=== PATIENT | female | born 1990 | race Caucasian/White ===

== ENCOUNTER 2018-01-30 14:54 | Emergency (ER) | payer OTHER ==
[~2018-01-30] VITALS: Ht 160 cm; Wt 99.8 kg
[2018-01-30 16:34] VITALS: BP 147/102
[2018-01-30] MEDS ORDERED: KETOROLAC TROMETH 60MG/2ML VIAL IM ONE (16:45)
== END 2018-01-30 17:42 | disposition home or self-care (01) ==
LOC: ER 14:58
DX: S46.912A Strain of unspecified muscle, fascia and tendon at shoulder and upper arm level, left arm, initial encounter (principal); S29.019A Strain of muscle and tendon of unspecified wall of thorax, initial encounter; S76.012A Strain of muscle, fascia and tendon of left hip, initial encounter; S80.02XA Contusion of left knee, initial encounter; W11.XXXA Fall on and from ladder, initial encounter; Y93.89 Activity, other specified; Y99.0 Civilian activity done for income or pay; Y92.89 Other specified places as the place of occurrence of the external cause
CPT/HCPCS: 72070; 73030; 73502; 73560; 81025; 96372; 99284; J1885

== ENCOUNTER 2021-01-29 12:57 | Emergency (ER) | payer OTHER ==
[~2021-01-29] VITALS: Ht 160 cm; Wt 93.0 kg
[2021-01-29 16:37] VITALS: BP 134/80
== END 2021-01-29 20:20 | disposition home or self-care (01) ==
LOC: ER 12:57
DX: S90.852A Superficial foreign body, left foot, initial encounter (principal); F17.210 Nicotine dependence, cigarettes, uncomplicated; Z97.10 Presence of artificial limb (complete) (partial), unspecified; Z88.0 Allergy status to penicillin; W18.49XA Other slipping, tripping and stumbling without falling, initial encounter; Y93.89 Activity, other specified; Y92.89 Other specified places as the place of occurrence of the external cause; Y99.8 Other external cause status
CPT/HCPCS: 73610; 73630; 73700

== ENCOUNTER 2024-10-02 11:26 | Inpatient (IN) | payer MEDICAID ==
[2024-10-02] VITALS (9 sets, daily range): BP systolic 125–153; BP diastolic 69–72; PULSE 65–122; RESP 18–24; TEMP 98.3–98.7; O2SAT 91–97
[~2024-10-02] VITALS: Ht 161.3 cm; Wt 91.2 kg
--- NOTE | 2024-10-02 12:05 | ED.PDOC ---
SOB-HPI HPI Comments 33y F who presents to the ED for chief complaint of shortness of breath. Pt states she has been having shortness of breath for the past 4 days and states she started to have non-productive cough this AM. Pt states she was seen at 1 days prior for her complaints and states he had chest x-ray done which shower bilateral pneumonia and given antibiotics and steroid treatment and discharged. Pt states she has continued to have increased shortness of breath with cough and congestion and came back to the ED despite taking her medications. Pt in the ED, has noted 02 sat of 96% on room air and noted to not be in any current respiratory distress. Pt otherwise denies chest pain, fever, headache, dizziness, nausea, vomiting, or chills. Pt otherwise denies any other symptoms at this time. Chief Complaint: Shortness of Breath Time Seen by MD: 11:59 Primary Care Provider: CARINA Bell notes: Nurses Notes, Medications Information Source: Patient Mode of Arrival: Ambulatory Brought in by: self Severity: Moderate Timing: Hours, Days Duration: Since onset Context: At Rest PE Risk Factors: None History of: None (pna) Prehospital treatment: Treatment (antibiotics, steroids) Modifying Factors: Nothing Associated Signs and Symptoms: Cough, Nasal Congestion If cough with SOB: Non-Productive Past Medical History PAST MEDICAL HISTORY: Denies Past Medical History (Other): blood clots in lung and lower extremity Surgical History: Hysterectomy, Thyroidectomy SLATE TRIMMER History: Denies all SLATE TRIMMER Hx Family History Family History: Family hx of HTN Social History Smoker: Cigarettes, Greater Than 1 Pack/Day Alcohol: Occasionally Drugs: Denies Drug Use Lives In: Home Constitutional: reports: chills, diaphoresis; denies: fatigue, fever, malaise, sweats, weakness, others EENTM: denies: blurred vision, double vision, ear bleeding, ear discharge, ear drainage, ear pain, ear ringing, eye pain, eye redness, hearing loss, mouth pain, mouth swelling, nasal discharge, nose bleeding, nose congestion, nose pain, photophobia, tearing, throat pain, throat swelling, voice changes, others Respiratory: reports: cough, shortness of breath; denies: hemoptysis, orthop jad, SOB at rest, SOB with excertion, stridor, wheezing, others Cardiovascular: denies: chest pain, dizzy spells, diaphoresis, Dyspnea on exertion, edema, irregular heart beat, left arm pain, lightheadedness, palpitations, PND, syncope, others Gastrointestinal: denies: abdomen distended, abdominal pain, blood streaked bowels, constipated, diarrhea, dysphagia, difficulty swallowing, hematemesis, melena, nausea, poor appetite, poor fluid intake, rectal bleeding, rectal pain, vomiting, others Genitourinary: denies: abnormal vagina bleeding, burning, dyspareunia, dysuria, flank pain, frequency, hematuria, incontinence, pain, , vagina discharge, urgency, others Neurological: denies: dizziness, fainting, headache, left sided numbness, left sided weakness, numbness, paresthesia, pre-existing deficit, right sided numbness, right sided weakness, seizure, speech problems, tingling, tremors, weakness, others Musculoskeletal: denies: back pain, gout, joint pain, joint swelling, muscle pain, muscle stiffness, neck pain, others Integumetry: denies: bruises, change in color, change in hair/nails, dryness, laceration, lesions, lumps, rash, wounds, others Allergic/Immunocompromised: denies: Difficulty Healing, Frequent Infections, Hives, Itching, others Hematologic/Lymphatic: denies: anemia, blood clots, easy bleeding, easy bruising, swollen glands, others Endocrine: denies: excessive hunger, excessive sweating, excessive thirst, excessive urination, flushing, intolerance to cold, intolerance to heat, unexplained weight gain, unexplained weight loss, others Psychiatric: denies: anxiety, bipolar disorder, depression, hopeless, panic disorder, schizophrenia, sleepless, suicidal, others All Other Systems: Reviewed and Negative Physical Exam General Appearance: Moderate Distress HEENT: Normal ENT Inspection, Pharynx Normal, TMs Normal Neck: Full Range of Motion, Non-Tender, Normal, Normal Inspection Respiratory: Chest Non-Tender, Decreased Breath Sounds, No Accessory Muscle Use, Respiratory Distress Cardiovascular: No Edema, No JVD, No Murmur, No Gallop, Systolic Murmur Breast Exam: Deferred Gastrointestinal: No Organomegaly, Non Tender, No Pulsatile Mass, Normal Bowel Sounds, Soft Genitalia: Deferred Pelvic: Deferred Rectal: Deferred Extremities: No calf tenderness, Normal capillary refill, Normal inspection, Normal range of motion, Non-tender, No pedal edema Musculoskeletal : Apperance: Normal Neurologic: Alert, production control coordinator II-XII nml as Tested, No Motor Deficits, Normal Affect, Normal Mood, No Sensory Deficits Cerebellar Function: Normal Reflexes: Normal Skin: Dry, Normal Color, Warm Lymphatic: No Adenopathy EKG EKG : Pulse Rate (adult): 146 [place]: Normal Cardiac Rhythm: ST Block: None Hypertrophy: None ST: Normal Was a procedure done? Was a procedure done?: No Differential Dx Differential Diagnosis: Bronchitis, Dysrhythmia, Pneumonia, Respiratory Distress, URI Comments Influenza A and B, COVID, viral syndrome, X-Ray, Labs, Meds, VS Vital Signs Date Time Temp Pulse Resp B/P (MAP) Pulse Ox O2 Delivery O2 Flow Rate FiO2 10/02/24 12:15 131 22 153/69 (97) 93 10/02/24 12:15 132 20 94 Room Air 10/02/24 12:05 146 10/02/24 11:52 98.3 148 16 151/89 (109) 96 10/02/24 11:43 146 Lab Test 10/02/24 12:08 10/02/24 12:02 Range/Units Influenza Type A Antigen Negative Negative Influenza Type B Antigen Negative Negative SARS-CoV-2 Antigen (Rapid) Negative NEGATIVE White Blood Count 30.0 H 4.4-10.8 10^3/uL Red Blood Count 5.84 H 4.0-5.20 10^6/uL Hemoglobin 17.0 H 12.2-16.2 g/dL Hematocrit 50.4 H 36.0-46.0 % Mean Corpuscular Volume 86.3 80.0-100.0 fL Mean Corpuscular Hemoglobin 29.1 28.0-32.0 pg Mean Corpuscular Hemoglobin Concent 33.7 32.0-36.0 g/dL Red Cell Distribution Width 13.3 11.8-14.3 % Platelet Count 438 140-450 10^3/uL Mean Platelet Volume 7.7 6.9-10.8 fL Neutrophils (%) (Auto) 37.0-80.0 % Lymphocytes (%) (Auto) 10.0-50.0 % Monocytes (%) (Auto) 0.0-12.0 % Basophils (%) (Auto) 0.0-2.0 % Neutrophils # (Auto) 1.6-8.6 10 ^3/uL Lymphocytes # (Auto) 0.4-5.4 10 ^3/uL Monocytes # (Auto) 0-1.3 10 ^3/uL Differential Total Cells Counted 100.0 100 Neutrophils % (Manual) 91 H 37.0-80.0 Band Neutrophils % (Manual) 1 Lymphocytes % (Manual) 5 L 10.0-50.0 Monocytes % (Manual) 3 0-12 Eosinophils % (Manual) 0 0-7 Basophils % (Manual) 0 0.0-2.0 Metamyelocytes % (manual) 0 Myelocytes % (Manual) 0 Promyelocytes % (Manual) 0 Blast Cells % (Manual) 0 Reactive Lymphocytes 0 Platelet Estimate Adequate D-Dimer, Quantitative 0.21 0.0-0.49 mg/L FEU Sodium Level 137 136-145 mmol/L Potassium Level 3.8 3.5-5.1 mmol/L Chloride Level 105 98-107 mmol/L Carbon Dioxide Level 23 20-31 mmol/L Anion Gap 9 5-15 Blood Urea Nitrogen 11 9-23 mg/dL Creatinine 0.90 0.550-1.02 mg/dL Glomerular Filtration Rate Calc 86 >90 mL/min BUN/Creatinine Ratio 12.2 10.0-20.0 Serum Glucose 204 H 74-106 mg/dL Calcium Level 10.9 H 8.7-10.4 mg/dL Current Medications Medications (Trade) Dose Ordered Sig/Angelo Route Start Time Stop Time Status Last Admin Methylprednisolone Sodium Succinate (Solu Medrol) 125 mg ONCE ONCE IV 10/02/24 11:45 10/02/24 11:46 DC 10/02/24 12:26 PROCEDURE(s): CXR2 - CHEST TWO VIEWS ROUTINE IMPRESSION: 1. Left basilar atelectasis, otherwise, no radiographic evidence of acute cardiopulmonary disease. The patient was given Solu-Medrol 125 mg IV push The patient's [place] [id number] The COVID test as well as influenza a and influenza B are negative The patient is being admitted with a diagnosis of most likely a left lower lobe pneumonia The patient was placed on Zithromax IV piggyback We are contacting Valentines at this time. The patient's oxygen saturation dropped below 93% so the patient was placed on 2 L nasal cannula of oxygen Images Reviewed?: Images reviewed and evaluated by me Time of 1ST Reevaluation: 12:30 Reevaluation 1ST: Unchanged Patient Education/Counseling: Diagnosis, Treatment, Prognosis Family Education/Counseling: No Family Present Additional Information - I reviewed the following notes from patient's past medical encounters: - The following tests were ordered, and results were reviewed by me: CBC, chest x-ray, BMP, D-dimer, COVID test, Influenza A and B, EKG - Additional information was gathered from interviewing the following independent Historian: none - I reviewed and agreed with the following test results read by other provider: radiologist - I discussed treatments and results with medical personnel and: patient Departure 1 Departure Time of Disposition: 13:14 Impression: Primary Impression: Left lower lobe pneumonia Qualified Codes: J18.9 - Pneumonia, unspecified organism Additional Impression: Acute respiratory failure Qualified Codes: J96.01 - Acute respiratory failure with hypoxia Disposition: ADMITTED INPATIENT Admit to: Tele Condition: Fair Critical Care Note Critical Care Time?: No Stability Stability form required: Yes Unstable for transfer: Telemetry monitoring (Telemetry monitoring required), ED Physician Assesment (Clinical assesment) Heart Score Heart Score: Heart Score Response (Comments) Value History Moderate Suspicious 1 EKG Normal 0 Age <45 0 Risk Factors No known risk factors 0 Troponin Normal limit 0 Total 1 I personally scribed for TOMMY CARDONA MD ([email or web address]) on 10/02/24 at 12:05. Electronically submitted by Lucinda Crowell ([email or web address]). I personally scribed for TOMMY CARDONA MD ([email or web address]) on 10/02/24 at 12:26. Electronically submitted by Lucinda FORD). TOMMY CARDONA MD Oct 02, 2024 12:05
--- NOTE | 2024-10-02 12:13 | DVH ---
XY CHEST TWO VIEWS ROUTINE CLINICAL HISTORY: sob COMPARISON: Chest radiograph report 10/01/2024 TECHNIQUE: Frontal and lateral view of the chest was obtained FINDINGS: Lines and Tubes: None Lungs: No focal consolidation. Left basilar curvilinear opacity Pleura: No effusion. No pneumothorax. Cardiomediastinal contours: Unremarkable Bones: No acute osseous abnormality. IMPRESSION: 1. Left basilar atelectasis, otherwise, no radiographic evidence of acute cardiopulmonary disease. HS:Y
[2024-10-02] MEDS: methylPREDNISolone SOD SUCC 125 MG/2 ML VL IV ONE (12:26)
[2024-10-02 12:34] LABS: Hematocrit 50.4 % (36.0-46.0); Mean Corpuscular Hemoglobin 29.1 pg (28.0-32.0); Mean Corpuscular Hgb Conc. 33.7 g/dL (32.0-36.0); Mean Corpuscular Volume 86.3 fL (80.0-100.0); Platelet Count (auto) 438 10^3/uL (140-450); Red Blood Cells 5.84 10^6/uL (4.0-5.20); Red Cell Distribution Width 13.3 % (11.8-14.3)
[2024-10-02 12:39] LABS: Basophils % (manual) 0 (0.0-2.0); Blast Cells 0; Eosinophils % (manual) 0 (0-7); Metamyelocytes % 0; Myelocytes % 0; Promyelocytes % 0; Reactive Lymphocytes 0
[2024-10-02 12:47] LABS: Chloride 105 mmol/L (98-107); Potassium 3.8 mmol/L (3.5-5.1); Sodium 137 mmol/L (136-145)
[2024-10-02 12:48] LABS: Anion Gap 9 (5-15); Carbon Dioxide 23 mmol/L (20-31)
[2024-10-02 12:53] LABS: BUN/Creatinine Ratio 12.2 (10.0-20.0); Blood Urea Nitrogen 11 mg/dL (9-23)
[2024-10-02 12:55] LABS: Calcium 10.9 mg/dL (8.7-10.4); Glucose 204 mg/dL (74-106)
[2024-10-02 12:56] LABS: Rapid Influenza A Negative (Negative); Rapid Influenza B Negative (Negative)
[2024-10-02 12:57] LABS: COVID19 ANTIGEN SOFIA FIA NEGATIVE (NEGATIVE)
[2024-10-02 13:03] LABS: Band Neutrophils % (manual) 1; Lymphocytes % (manual) 5 (10.0-50.0); Monocytes % (manual) 3 (0-12); Platelet Estimate Adequate
[2024-10-02] MEDS: AZITHROMYCIN 500MG/ 250ML 250 ML IV ONE (13:51)
[2024-10-02] MEDS ORDERED: VANCOMYCIN PER PHARMACY 0 MG IV SCH (14:15)
[2024-10-02] MEDS: SODIUM CHLORIDE 0.9% 1,000 ML IV SCH (14:15)
[2024-10-02] MEDS ORDERED: DOCUSATE SOD 100 MG CAP PO PRN (14:15)
[2024-10-02] MEDS ORDERED: MAALOX PLUS or MAALOX 30 ML PO PRN (14:15)
[2024-10-02] MEDS ORDERED: TEMAZEPAM 15 MG CAP PO PRN (14:15)
[2024-10-02] MEDS ORDERED: ONDANSETRON HCL 4 MG/2 ML VIAL IV PRN (14:15)
--- NOTE | 2024-10-02 15:17 | DVHHP2 ---
History of Present Illness Reason for Visit: Shortness of breath History of Present Illness 33-year-old patient with no past medical history closely ED for evaluation of stated productive cough and shortness of breath patient on initial evaluation was shown to have severe signs of possible bilateral pneumonia patient had an x-ray completed in the ED which confirmed suggested atelectasis patient also had signs of a severely elevated white count with cough cold and congestion at this point in time patient was recommended for admission into the hospital for continued treatment and management as per ED provider recommendations Review of Systems Constitutional: Yes: Weakness; No: Fever, Chills, Sweats, Malaise, Other Eyes: No: Pain, Vision change, Conjunctivae inflammation, Eyelid inflammation, Other, Redness ENT: No: Ear pain, Ear discharge, Nose pain, Nose discharge, Nose congestion, Mouth pain, Mouth swelling, Throat pain, Throat swelling, Other Respiratory: Cough, Shortness of breath, SOB with excertion; No: Dry, Wheezing, Hemoptysis, Pleuritic Pain, Sputum, Wheezing, Other Cardiovascular: No: Chest Pain, Palpitations, Orthopnea, Paroxysmal Noc. Dysp jad, Edema, Lt Headedness, Other Gastrointestinal: No: Nausea, Vomiting, Abdominal Pain, Diarrhea, Constipation, Melena, Hematochezia, Other Genitourinary: No Dysuria, No Frequency, No Incontinence, No Hematuria, No Retention, No Other Musculoskeletal: No: other, neck pain, shoulder pain, arm pain, back pain, hand pain, leg pain, foot pain Skin: No: Rash, Lesions, Jaundice, Bruising, Other Neurological: No: Weakness, Numbness, Incoordination, Change in speech, Confusion, Seizures, Other Allergies: Coded Allergies: Amoxicillin (Verified Allergy, Unknown, 01/29/21) Exam Vital Signs Vital Signs Date Time Temp Pulse Resp B/P (MAP) Pulse Ox O2 Delivery O2 Flow Rate FiO2 10/02/24 12:15 131 22 153/69 (97) 93 10/02/24 12:15 Room Air 10/02/24 11:52 98.3 General Appearance: Alert, Oriented X3, Cooperative, moderate distress HEENT: Atraumatic, PERRLA Respiratory: Clear to auscultation (Left-sided rhonchi) Cardiovascular: Regular rate, Normal S1, Normal S2 Abdominal: Normal bowel sounds, Soft Extremities: No clubbing, No cyanosis Skin: No rashes, No breakdown Neuro: Normal gait, Normal speech Psych/Mental Status: Mood NL Labs/Xrays Labs Test 10/02/24 12:08 10/02/24 12:02 Range/Units Influenza Type A Antigen Negative Negative Influenza Type B Antigen Negative Negative SARS-CoV-2 Antigen (Rapid) Negative NEGATIVE White Blood Count 30.0 H 4.4-10.8 10^3/uL Red Blood Count 5.84 H 4.0-5.20 10^6/uL Hemoglobin 17.0 H 12.2-16.2 g/dL Hematocrit 50.4 H 36.0-46.0 % Mean Corpuscular Volume 86.3 80.0-100.0 fL Mean Corpuscular Hemoglobin 29.1 28.0-32.0 pg Mean Corpuscular Hemoglobin Concent 33.7 32.0-36.0 g/dL Red Cell Distribution Width 13.3 11.8-14.3 % Platelet Count 438 140-450 10^3/uL Mean Platelet Volume 7.7 6.9-10.8 fL Neutrophils (%) (Auto) 37.0-80.0 % Lymphocytes (%) (Auto) 10.0-50.0 % Monocytes (%) (Auto) 0.0-12.0 % Basophils (%) (Auto) 0.0-2.0 % Neutrophils # (Auto) 1.6-8.6 10 ^3/uL Lymphocytes # (Auto) 0.4-5.4 10 ^3/uL Monocytes # (Auto) 0-1.3 10 ^3/uL Differential Total Cells Counted 100.0 100 Neutrophils % (Manual) 91 H 37.0-80.0 Band Neutrophils % (Manual) 1 Lymphocytes % (Manual) 5 L 10.0-50.0 Monocytes % (Manual) 3 0-12 Eosinophils % (Manual) 0 0-7 Basophils % (Manual) 0 0.0-2.0 Metamyelocytes % (manual) 0 Myelocytes % (Manual) 0 Promyelocytes % (Manual) 0 Blast Cells % (Manual) 0 Reactive Lymphocytes 0 Platelet Estimate Adequate D-Dimer, Quantitative 0.21 0.0-0.49 mg/L FEU Sodium Level 137 136-145 mmol/L Potassium Level 3.8 3.5-5.1 mmol/L Chloride Level 105 98-107 mmol/L Carbon Dioxide Level 23 20-31 mmol/L Anion Gap 9 5-15 Blood Urea Nitrogen 11 9-23 mg/dL Creatinine 0.90 0.550-1.02 mg/dL Glomerular Filtration Rate Calc 86 >90 mL/min BUN/Creatinine Ratio 12.2 10.0-20.0 Serum Glucose 204 H 74-106 mg/dL Calcium Level 10.9 H 8.7-10.4 mg/dL Assessment/Plan Assessment/Plan Admit to telemetry Suspected left lower lobar pneumonia Acute respiratory distress Chest x-ray shows left lower basilar atelectasis IV antibiotics Severe leukocytosis IV hydration Recommendation for BiPAP P.r.n. breathing treatments Critical care time 38 minutes Plan discussed with: Patient My Orders Orders - CELY VELASCO MD Procedure Category Date Status Time Vancomycin Per PHA 10/02/24 Logged Pharmacy 14:15 Piperacillin-Tazob PHA 10/02/24 Logged 3.375gm (Zosyn 3.375g 22:00 BIPAP RT 10/02/24 Logged 14:11 Albuterol Medneb PHA 10/02/24 In Process (Ventolin Medneb) 14:15 Ipratropium Medneb PHA 10/02/24 In Process (Atrovent Medneb) 14:15 Med Neb Initial RT 10/02/24 Logged Treatment 14:11 Methylprednisolone PHA 10/02/24 In Process Sod Succ (Solu Medrol 22:00 Abg W/ Co-Ox RT 10/02/24 Logged 14:11 Admit ADMIT 10/02/24 Transmitted 14:11 Code Status CODE 10/02/24 Transmitted 14:11 Vital Signs CYNTHIA 10/02/24 In Process 14:11 Review Orders With CYNTHIA 10/02/24 In Process Adm. 14:11 Regular Diet DIET 10/02/24 Transmitted Dinner Sodium Chloride 0.9% PHA 10/02/24 In Process 14:15 Lorazepam Tablet PHA 10/02/24 In Process (Ativan Tablet) 14:15 Alum & Mag PHA 10/02/24 In Process Hydrox-Simethicone 14:15 Docusate Sodium PHA 10/02/24 In Process Capsule (Colace 14:15 Acetaminophen Tablet PHA 10/02/24 In Process (Tylenol Tablet) 14:15 Temazepam (Restoril) PHA 10/02/24 In Process 14:15 Notify Md Of Changes CYNTHIA 10/02/24 In Process From Base 14:11 Advance Directive CYNTHIA 10/02/24 In Process 14:11 Urinalysis LAB 10/02/24 Logged 14:11 Patient Condition ORDERS 10/02/24 Transmitted 14:11 Allergies CYNTHIA 10/02/24 In Process 14:11 Hydrocodone-Acet PHA 10/02/24 In Process 5/325mg Tab ([place] 14:15 Ondansetron Hcl PHA 10/02/24 In Process (Zofran) 14:15 Drug Screen LAB 10/02/24 Logged 14:11 Morphine Sulfate PHA 10/02/24 In Process Injection 14:15 Notify Md Of Changes [facility] 10/02/24 In Process From Base 14:11 Front Desk Monitor For [facility] 10/02/24 In Process 24 Hours 14:11 Oxygen By Nasal RT 10/02/24 Transmitted Cannula 14:11 Problem List: (1) Left lower lobe pneumonia (2) Acute respiratory failure Date of Service: Oct 02, 2024 Billing Provider: CELY VELASCO MD Common Visit Codes: [id number] CARE 30-74 MIN CELY VELASCO MD Oct 02, 2024 15:17
[2024-10-02 15:18] LABS: Base Excess -5.9 mmol/L (-2.0-3.0)
[2024-10-02] MEDS: HYDROcodone-ACET 5/325MG TAB PO PRN (16:08)
[2024-10-02] MEDS: LORazepam 0.5 MG TAB PO PRN (18:53)
[2024-10-02] MEDS: ALBUTEROL SULF 2.5 MG/0.5ML(0.5%) NEB SOLN NEB PRN (18:57)
[2024-10-02] MEDS: IPRATROPIUM BROM 0.5 MG/2.5ML INH SOL NEB PRN (18:58)
[2024-10-02] MEDS: VANCOMYCIN 1,000 MG in D5W 5% 250 ML IV SCH (20:25)
[2024-10-02] MEDS: MORPHINE SULFATE INJ 2 MG/ml SYRG IV PRN (20:30)
[2024-10-02] MEDS ORDERED: PIPERACILLIN-TAZOB 3.375GM 100 ML IV SCH (22:00)
[2024-10-02] MEDS: methylPREDNISolone SOD SUCC 40 MG/ML VL IV SCH (23:43)
[2024-10-03] VITALS (17 sets, daily range): BP systolic 110–126; BP diastolic 58–67; PULSE 86–115; RESP 16–24; TEMP 97.9–98.5; O2SAT 91–99
[2024-10-03] MEDS: ACETAMINOPHEN 325 MG TAB PO PRN ×2 (00:21→18:17)
[2024-10-03] MEDS: VANCOMYCIN 1,250 MG in D5W 5% 250 ML IV SCH (05:49)
[2024-10-03 07:48] LABS: Potassium 3.8 mmol/L (3.5-5.1)
[2024-10-03 07:54] LABS: BUN/Creatinine Ratio 11.1 (10.0-20.0)
[2024-10-03 07:55] LABS: Albumin 4.5 g/dL (3.2-4.8)
[2024-10-03 07:57] LABS: Phosphorus 3.7 mg/dL (2.4-5.1)
[2024-10-03 09:43] LABS: Alanine Aminotransferase 39 U/L (7-40); Albumin 4.8 g/dL (3.2-4.8); Alkaline Phosphatase 85 U/L (46-116); Anion Gap 11 (5-15); Aspartate Aminotransferase 20 U/L (13-40); Blood Alcohol < 3.0 mg/dL (<10); Blood Urea Nitrogen 11 mg/dL (9-23); Calcium 10.3 mg/dL (8.7-10.4); Carbon Dioxide 21 mmol/L (20-31); Chloride 107 mmol/L (98-107); Potassium 3.8 mmol/L (3.5-5.1); Sodium 139 mmol/L (136-145); Total Protein 7.7 g/dL (5.7-8.2)
[2024-10-03 09:47] LABS: Glucose 144 mg/dL (74-106)
[2024-10-03] MEDS ORDERED: SODIUM CHLORIDE 0.9% 1,000 ML IV SCH (10:00)
[2024-10-03] MEDS: ALBUTEROL SULF 2.5 MG/0.5ML(0.5%) NEB SOLN NEB SCH (10:00)
[2024-10-03] MEDS: IPRATROPIUM BROM 0.5 MG/2.5ML INH SOL NEB SCH (10:00)
[2024-10-03 10:09] LABS: Bilirubin, Total 0.2 mg/dL (0.2-1.0)
[2024-10-03 10:16] LABS: Basophils # (auto) 0.1 10 ^3/uL (0-0.2); Eosinophils # (auto) 0 10 ^3/uL (0-0.8); Monocytes # (auto) 1.1 10 ^3/uL (0-1.3); Monocytes % (auto) 3.5 % (0.0-12.0)
[2024-10-03 10:20] LABS: Basophils % (auto) 0.2 % (0.0-2.0); Hematocrit 46.1 % (36.0-46.0); Hemoglobin 15.7 g/dL (12.2-16.2); Lymphocytes % (auto) 6.6 % (10.0-50.0); Mean Corpuscular Hemoglobin 29.2 pg (28.0-32.0); Mean Corpuscular Volume 85.8 fL (80.0-100.0); Neutrophils # (auto) 27.2 10 ^3/uL (1.6-8.6); Neutrophils % (auto) 89.7 % (37.0-80.0); Platelet Count (auto) 422 10^3/uL (140-450); Red Blood Cells 5.37 10^6/uL (4.0-5.20)
[2024-10-03 10:35] LABS: White Blood Cell 30.3 10^3/uL (4.4-10.8)
[2024-10-03] MEDS: SODIUM CHLORIDE 0.9% 1,000 ML IV SCH (10:45)
--- NOTE | 2024-10-03 10:53 | DVH ---
Procedure: CT CHEST WITHOUT CONTRAST Reason for study/Clinical History: Foreign body aspiration. Comparison Study: None. Exam Date: 10/03/2024 10:22 AM TECHNIQUE: Multidetector CT of the chest was performed from the lung apices to the upper abdomen with out the use of intravenous contract. Axial, coronal and sagittal multiplanar reformats were performed . Radiation Dose Information: CT Dose: CTDI volume is 27.84 mGy. Dose-length product is 950.04 mGy*cm The dose indicators for CT are the volume Computed Tomography (CT) Dose Index (CTDIvol) and the Dose Length Product (DLP), and are measured in units of mGy and mGy-cm, respectively. These indicators are not patient dose, but values generated from the CT scanner acquisition factors. The report includes radiation exposure data for exposures received during this examination. Radiation optimization: All CT scans at this facility use at least one of these dose optimization jen hniques: automated exposure control mA and/or kV adjustment per patient size (includes targeted exam s where dose is matched to clinical indication) or iterative reconstruction. FINDINGS Lungs/Pleura: There is moderate size patchy ground-glass opacities in the left upper lobe likely repr esenting airspace disease. There are similar smaller areas of patchy ground-glass opacity in the martin hilar right lung involving the right upper lobe, right middle lobe and right lower lobe. There is mil d scarring versus atelectasis in the lower lungs. There is no evidence of pleural effusion or pneumot horax. The central airways are clear. There is no evidence of a radiopaque foreign body. Heart/Vascular Structures: Normal heart size. No pericardial effusion. Lymph Nodes: No thoracic lymphadenopathy. Musculoskeletal: No acute osseous abnormality. Soft tissues: Unremarkable. Upper abdomen: Visualized solid abdominal viscera grossly appears unremarkable. IMPRESSION: 1. Moderate size patchy ground-glass opacities in the left upper lobe likely representing airspace d isease. Clinical correlation is recommended. 2. Similar smaller areas of patchy ground-glass opacity in the perihilar right lung. HS:Y
[2024-10-03] MEDS ORDERED: levoFLOXacin 500MG 100 ML IV SCH (11:30)
[2024-10-03] MEDS ORDERED: levoFLOXacin 250MG 50 ML IV ONE (13:00)
[2024-10-03] MEDS: levoFLOXacin 250MG 50 ML IV SCH (13:07)
[2024-10-03] MEDS ORDERED: levoFLOXacin 250MG 50 ML IV SCH (14:00)
[2024-10-03] MEDS ORDERED: CEFEPIME 1GM/ 50ML 50 ML IV SCH (14:00)
--- NOTE | 2024-10-03 15:02 | DVHPNRES ---
Progress Note Date Seen: Oct 03, 2024 Resident Creating Document: JUS CALDERÓN RESIDENT Medical Necessity Reason Pt with a Central, PICC or Fol: No Subjective Review of Systems SANTOS SHEPHERD is a 33-year-old female with no significant PMH presented to the ED with the chief complaints of shortness of breaths and cough since 6 days prior to admission. Patient reported last Sunday, she aspirated booba bubble, to dL developed cough, went to urgent care, received steroids antibiotics and breathing treatments, did not resolve, worsening with cough, headache, palpitations and shortness of which prompted her to visit ED. On my assessment patient denies recent travel, sick contact, fever, nausea, vomiting, diarrhea, chest pain, and other acute associated symptoms. PMH: Denies PSH: Hysterectomy and surgery for strabismus Family history: Reviewed, noncontributory Social history: Lives with family. Smokes 1 pack per day since 16 years old but denies alcohol and other drug abuse Allergies: , oxacillin Home medications: None Patient seen and examined at the bedside. Patient is currently on 2 L oxygen NC, still complaining of cough, shortness of breath. Patient receiving breathing treatments along with Solu-Medrol 40 and vancomycin. Consulted pulmonology for further evaluation, ordered CT chest, which showed moderate site patchy ground-glass opacities in left upper lobe and perihilar right lung. Ordered cultures. pulmonology corporate consultant evaluated the patient advised to continue current management. Objective vital signs Vital Sign Date Time Temp Pulse Resp B/P (MAP) Pulse Ox O2 Delivery O2 Flow Rate FiO2 10/03/24 13:00 98.5 110 21 112/64 (80) 93 98.5 10/03/24 10:38 Nasal Cannula 2.0 10/03/24 10:38 28 Total Intake and Output 10/02/24 10/02/24 10/03/24 15:00 23:00 07:00 Intake Total 200 ml Balance 200 ml medications Current Medications Medications Dose Ordered Sig/Angelo Route Start Time Stop Time Status Last Admin Dose Admin Vancomycin HCl 0 ml @ 0 mls/hr UD IV 10/02/24 14:15 Piperacillin Sod/ Tazobactam Sod 100 ml @ 100 mls/hr Q8HR IV 10/02/24 22:00 Hold Methylprednisolone Sodium Succinate 40 mg BID IV 10/02/24 22:00 10/03/24 09:40 40 MG Lorazepam 0.5 mg Q6HP PRN PO 10/02/24 14:15 10/03/24 09:52 0.5 MG Al Hydrox/Mg Hydrox/Simethicone 30 ml Q6HP PRN PO 10/02/24 14:15 Docusate Sodium 100 mg BIDPRN PRN PO 10/02/24 14:15 Temazepam 15 mg QHSP PRN PO 10/02/24 14:15 Acetaminophen/ Hydrocodone Bitart 1 tab Q4HP PRN PO 10/02/24 14:15 10/03/24 14:09 1 TAB Ondansetron HCl 4 mg Q4HP PRN IV 10/02/24 14:15 Morphine Sulfate 2 mg Q4HPRN PRN IV 10/02/24 14:15 10/02/24 20:30 2 MG Vancomycin HCl 1250 mg/Dextrose 250 ml @ 200 mls/hr Q12H IV 10/03/24 05:00 10/03/24 05:49 200 MLS/HR Acetaminophen 650 mg Q6HP PRN PO 10/03/24 09:30 Albuterol 2.5 mg Q4HPRN NEB 10/03/24 09:45 10/03/24 10:38 2.5 MG Ipratropium [place] 0.5 mg Q4HPRN NEB 10/03/24 09:45 10/03/24 10:38 0.5 MG Sodium Chloride 1,000 ml @ 150 mls/hr Q6H40M IV 10/03/24 10:45 10/03/24 10:45 150 MLS/HR Levofloxacin 50 ml @ 50 mls/hr DAILY@1000,1100 IV 10/04/24 10:00 Levofloxacin 50 ml @ 50 mls/hr DAILY@1300,1400 IV 10/03/24 13:00 10/03/24 14:59 10/03/24 14:09 50 MLS/HR Examination Pt is lying on bed General Appearance: Alert, Oriented X3, Cooperative, moderate distress HEENT: Atraumatic, Mucous membranes moist/pink Respiratory: Wheezing and rales in bilateral lung Cardiovascular: tachycardic , Normal S1, Normal S2, No murmurs Abdominal: Active bowel sounds, Soft, no distention, no tenderness Extremities: No edema, Normal pulses, No tenderness/swelling Skin: No Significant rash, except past surgical scars Neuro: Normal speech, sensorimotor deficits none Psych/Mental Status: Mental status NL, Mood NL Nurse was there as yancyne during examination laboratory and microbiology Laboratory Tests 10/03/24 08:58 Test 10/03/24 08:58 Range/Units Serum Glucose 144 H 74-106 mg/dL Labs and/or images reviewed: Labs reviewed by me, Image(s) reviewed by me Problem List/Assessment/Plan Problem List/Assessment/Plan # Sepsis likely due to pneumonia # Acute G+/- bacterial PNA vs Aspiration PNA # acute hypoxic respiratory failure likely due to pneumonia # ruled out influenza and COVID - currently on 2 L oxygen NC - Patient receiving breathing treatments along with Solu-Medrol 40 and vancomycinl and levofloxacin. - Consulted pulmonology for further evaluation, advised to continue current management. - ordered CT chest We, which showed moderate site patchy ground-glass opacities in left upper lobe and perihilar right lung - Ordered cultures - monitor lab - CXR showed left basilar atelectasis, otherwise, no radiographic evidence of acute cardiopulmonary disease # Vit D deficiency - Repleting No DVT PPX since patient is ambulatory Maalox cardiac diet Goals of care discussed with the patient for more than 27 minutes: Full code status Case management discussed with Dr. Arellano, patient and nurse Plan discussed with: Patient My Orders My Orders Orders - JUS CALDERÓN RESIDENT Procedure Category Date Status Time Respiratory Culture JULIA 10/03/24 Logged W/ Gs 08:04 Blood Culture JULIA 10/03/24 In Process 08:04 Albuterol Medneb PHA 10/03/24 In Process (Ventolin Medneb) 09:45 Ipratropium Medneb PHA 10/03/24 In Process (Atrovent Medneb) 09:45 Sodium Chloride 0.9% PHA 10/03/24 In Process 10:45 Cardiac DIET 10/03/24 Transmitted Diet-2gna,Lofat,Lochol Lunch Levofloxacin 250mg PHA 10/04/24 In Process (Levaquin 250mg) 10:00 Levofloxacin 250mg PHA 10/03/24 In Process (Levaquin 250mg) 13:00 Date of Service: Oct 03, 2024 Billing Provider: LAURO ARELLANO MD Common Visit Codes: [id number] INP/OBS CARE(HIGH) JUS CALDERÓN RESIDENT Oct 03, 2024 15:01 LAURO ARELLANO MD Oct 06, 2024 19:42
--- NOTE | 2024-10-03 15:48 | DVHINCON2 ---
Date of service: Oct 03, 2024 Referring Physician Carlos Oquendo MD Reason for Consultation Acute hypoxic respiratory failure, pneumonia History of Present Illness A 33-year-old woman with no significant past medical history who presented to the ED on 10/02/24 with c/o productive cough and shortness of breath x6 days. Of note, patient reported last Sunday, she aspirated a booba bubble and developed cough; went to urgent care, received steroids, antibiotics and breathing treatments but did not resolve. She had worsening cough, headache, palpitations and shortness of breath which prompted her to visit ED. Patient showing signs of possible bilateral pneumonia; chest x-ray was notable for atelectasis. Patient also w/ severely elevated white count with cough, cold and congestion. She denied fever, nausea, vomiting, chest pain, or other associated symptoms. Patient was admitted for further care and pulmonary consultation is requested for evaluation and management due to the above findings. Review of Systems: 14-point review of systems negative unless otherwise noted above. Past Medical History: Strabismus. Past Surgical History: Hysterectomy and surgery for strabismus. Medications: Reviewed. Allergies: Amoxicillin. Family History: Blood clots, diabetes mellitus, pulmonary embolism and hypertension. Social History: Smoker. Smokes 1 pack per day since 16 years old. No alcohol or illicit drug use. Family History: Blood clots G8 MOTHER G8 FATHER Diabetes mellitus G8 MOTHER FH: pulmonary embolism G8 FATHER Hypertension G8 MOTHER Allergies: Coded Allergies: Amoxicillin (Verified Allergy, Unknown, 01/29/21) Home Meds No Active Prescriptions or Reported Meds Current Medications Current Medications Medications (Trade) Dose Ordered Sig/Angelo Route PRN Reason Start Time Stop Time Status Last Admin Piperacillin Sod/ Tazobactam Sod 100 ml @ 100 mls/hr Q8HR IV 10/02/24 22:00 Hold Methylprednisolone Sodium Succinate (Solu Medrol) 40 mg BID IV 10/02/24 22:00 10/03/24 09:40 Vancomycin HCl 1000 mg/Dextrose 250 ml @ 250 mls/hr Q1H IV 10/02/24 16:15 10/02/24 18:14 DC 10/02/24 23:42 Vancomycin HCl 1250 mg/Dextrose 250 ml @ 200 mls/hr Q12H IV 10/03/24 05:00 10/03/24 05:49 Acetaminophen (Tylenol Tablet) 650 mg Q6HP PRN PO MILD PAIN (1-3 PAIN SCALE) 10/03/24 09:30 Albuterol (Ventolin Medneb) 2.5 mg Q4HPRN NEB 10/03/24 09:45 10/03/24 14:56 Ipratropium [place] (Atrovent Medneb) 0.5 mg Q4HPRN NEB 10/03/24 09:45 10/03/24 14:56 Sodium Chloride 1,000 ml @ 125 mls/hr Q8H IV 10/03/24 10:00 10/03/24 10:35 DC Cefepime HCl 50 ml @ 12.5 mls/hr Q8HR IV 10/03/24 14:00 10/03/24 11:18 DC Sodium Chloride 1,000 ml @ 150 mls/hr Q6H40M IV 10/03/24 10:45 10/03/24 10:45 Levofloxacin/ Dextrose 100 ml @ 100 mls/hr DAILY IV 10/03/24 11:30 10/03/24 12:57 DC Levofloxacin 50 ml @ 50 mls/hr DAILY@1000,1100 IV 10/04/24 10:00 Levofloxacin 50 ml @ 50 mls/hr DAILY@1300,1400 IV 10/03/24 14:00 10/03/24 13:01 DC Levofloxacin 50 ml @ 50 mls/hr DAILY@1300,1400 IV 10/03/24 13:00 10/03/24 14:59 DC 10/03/24 14:09 Ergocalciferol (Vitamin D 50,000 Unit) 50,000 unit Q7D PO 10/03/24 15:00 Vital Signs Vital Signs Date Time Temp Pulse Resp B/P (MAP) Pulse Ox O2 Delivery O2 Flow Rate FiO2 10/03/24 15:04 98 18 99 10/03/24 14:56 Nasal Cannula* 2 28 10/03/24 13:00 98.5 112/64 (80) 98.5 Physical Exam Gen.: Patient lying in bed in no apparent distress. On supplemental oxygen. Head: Normocephalic, atraumatic. Eyes: EOMI/PERRLA. Ears: Normal hearing. Normal anatomy. Neck/trachea: Trachea midline, supple. Nose: Normal external anatomy. Mouth: Moist mucous membranes. Chest: Decreased air entry bilaterally. No wheezing or rhonchi. Cardiovascular: Positive S1, positive S2. Regular rate and rhythm. Abdomen: Positive bowel sounds in all 4 quadrants. Soft, non-tender, non- distended. : Deferred. Rectal: Deferred. Skin: Warm, dry. Intact. Extremities: 2+ radial pulses bilaterally. No lower extremity edema. Neuro: Awake, alert, oriented x3. No gross motor or sensory deficits. Cranial nerves II through XII intact. Gait not assessed. Labs/Diagnostic Data Labs Test 10/03/24 11:09 10/03/24 08:58 10/03/24 06:37 10/02/24 15:05 Range/Units Lactic Acid Level 3.0 *H 0.4-2.0 mmol/L White Blood Count 30.3 *H 4.4-10.8 10^3/uL Red Blood Count 5.37 H 4.0-5.20 10^6/uL Hemoglobin 15.7 12.2-16.2 g/dL Hematocrit 46.1 H 36.0-46.0 % Mean Corpuscular Volume 85.8 80.0-100.0 fL Mean Corpuscular Hemoglobin 29.2 28.0-32.0 pg Mean Corpuscular Hemoglobin Concent 34.0 32.0-36.0 g/dL Red Cell Distribution Width 13.0 11.8-14.3 % Platelet Count 422 140-450 10^3/uL Mean Platelet Volume 7.9 6.9-10.8 fL Neutrophils (%) (Auto) 89.7 H 37.0-80.0 % Lymphocytes (%) (Auto) 6.6 L 10.0-50.0 % Monocytes (%) (Auto) 3.5 0.0-12.0 % Eosinophils (%) (Auto) 0.0 0.0-7.0 % Basophils (%) (Auto) 0.2 0.0-2.0 % Neutrophils # (Auto) 27.2 H 1.6-8.6 10 ^3/uL Lymphocytes # (Auto) 2.0 0.4-5.4 10 ^3/uL Monocytes # (Auto) 1.1 0-1.3 10 ^3/uL Eosinophils # (Auto) 0 0-0.8 10 ^3/uL Basophils # (Auto) 0.1 0-0.2 10 ^3/uL Nucleated Red Blood Cells 0.0 % Sodium Level 139 136-145 mmol/L Potassium Level 3.8 3.5-5.1 mmol/L Chloride Level 107 98-107 mmol/L Carbon Dioxide Level 21 20-31 mmol/L Anion Gap 11 5-15 Blood Urea Nitrogen 11 9-23 mg/dL Creatinine 0.92 0.550-1.02 mg/dL Glomerular Filtration Rate Calc 83 >90 mL/min BUN/Creatinine Ratio 12.0 10.0-20.0 Serum Glucose 144 H 74-106 mg/dL Hemoglobin A1c 5.6 <5.7 % A1C Calcium Level 10.3 8.7-10.4 mg/dL Magnesium Level 2.0 1.6-2.6 mg/dL Total Bilirubin 0.2 0.2-1.0 mg/dL Aspartate Amino Transferase (AST) 20 13-40 U/L Alanine Aminotransferase (ALT) 39 7-40 U/L Alkaline Phosphatase 85 46-116 U/L Total Protein 7.7 5.7-8.2 g/dL Albumin 4.8 3.2-4.8 g/dL Vitamin B12 Level 554 211-911 pg/mL Vitamin D 25-Hydroxy 13.3 L 30.0-100 ng/mL Thyroid Stimulating Hormone (TSH) 0.77 0.55-4.78 uIU/mL Beta HCG, Quantitative 2.1 1.5-4.2 mIU/mL Plasma/Serum Blood Alcohol < 3.0 <10 mg/dL Estimated GFR () 92 mL/min Estimated GFR (Non- 76 mL/min Phosphorus Level 3.7 2.4-5.1 mg/dL Blood Gas Specimen Type Arterial Blood Gas Sample Site Right radial Blood Gas Patient Temperature 37.0 Arterial Blood Date Drawn [id number] Arterial Blood pH 7.443 7.350-7.450 Arterial Blood Partial Pressure CO2 23.2 L 32.0-45.0 mmHg Arterial Blood Partial Pressure O2 68.0 L 83.0-108.0 mmHg Arterial Blood HCO3 15.5 L 21.0-28.0 mmol/L Arterial Blood Oxygen Saturation 93.8 L 94.0-98.0 % Arterial Blood Base Excess -5.9 L -2.0-3.0 mmol/L Arterial Blood Oxyhemoglobin 92.3 L 94.0-98.0 % Arterial Blood Carboxyhemoglobin 1.1 0.5-1.5 % Arterial Blood Methemoglobin 0.5 0.0-1.5 % Bello Test Yes Blood Gas Total Hemoglobin 17.70 H 12.0-16.0 g/dL Blood Gas Liter Flow 2.00 Blood Gas Modality Nasal cannula FiO2 % 28.0 Test 10/02/24 12:08 10/02/24 12:02 Range/Units Influenza Type A Antigen Negative Negative Influenza Type B Antigen Negative Negative SARS-CoV-2 Antigen (Rapid) Negative NEGATIVE Differential Total Cells Counted 100.0 100 Neutrophils % (Manual) 91 H 37.0-80.0 Band Neutrophils % (Manual) 1 Lymphocytes % (Manual) 5 L 10.0-50.0 Monocytes % (Manual) 3 0-12 Eosinophils % (Manual) 0 0-7 Basophils % (Manual) 0 0.0-2.0 Metamyelocytes % (manual) 0 Myelocytes % (Manual) 0 Promyelocytes % (Manual) 0 Blast Cells % (Manual) 0 Reactive Lymphocytes 0 Platelet Estimate Adequate D-Dimer, Quantitative 0.21 0.0-0.49 mg/L FEU Assessment Impression: Acute hypoxic respiratory failure Aspiration of foreign body Sepsis, likely d/t pneumonia Left lower lobe pneumonia Nicotine dependence Obesity Plan: Supplemental oxygen 2 LPM NC Titrate to keep O2 sats above 92%. Taper o2 as tolerated CT chest demonstrated moderate size patchy ground-glass opacities in left upper lobe and perihilar right lung. Continue bronchodilators. IV steroids Continue antibiotics Follow up cultures Incentive spirometry Pain control Avoid oversedation Monitor renal function. Monitor electrolytes. Supplement as necessary. Monitor ins and outs. Smoking cessation discussed for greater than 10 minutes. Diet and lifestyle modifications for weight reduction Obesity - complicates all care No DVT prophylaxis since pt is ambulatory. Prognosis: Poor given patient's multiple co-morbidities. Rest of plan per hospitalist and other consultants. Thank you Dr. Carlos Oquendo MD, for allowing me to participate in this patient's care. Further recommendations will depend on the patient's clinical course. Please do not hesitate to contact me if you have any questions or concerns. This medical document was created using an electronic medical record system with [employer] dictation system. Although these documentations are being carefully reviewed, there may still be some phonetic and typographical changes. The errors are purely typographical, due to imperfection on the software program, and do not reflect any compromise in the patient's medical care. Plan discussed with: Patient, Other (RN/MD Oquendo) JERRY MATHIS MD Oct 03, 2024 15:48
[2024-10-03] MEDS: IBUPROFEN 600 MG TAB PO ONE (16:27)
[2024-10-03] MEDS: ERGOCALCIFEROL 50,000 UNIT(1.25MG) CAP PO SCH (16:28)
[2024-10-04] VITALS (14 sets, daily range): BP systolic 102–126; BP diastolic 61–68; PULSE 55–103; RESP 16–21; TEMP 97.7–98.3; O2SAT 93–99
--- NOTE | 2024-10-04 06:56 | ECG ---
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
[2024-10-04 06:59] LABS: Basophils # (auto) 0 10 ^3/uL (0-0.2); Basophils % (auto) 0.1 % (0.0-2.0); Eosinophils # (auto) 0 10 ^3/uL (0-0.8); Hematocrit 41.3 % (36.0-46.0); Hemoglobin 14.1 g/dL (12.2-16.2); Lymphocytes # (auto) 1.8 10 ^3/uL (0.4-5.4); Lymphocytes % (auto) 11.2 % (10.0-50.0); Mean Corpuscular Hemoglobin 29.3 pg (28.0-32.0); Mean Corpuscular Volume 86.1 fL (80.0-100.0); Monocytes # (auto) 0.7 10 ^3/uL (0-1.3); Monocytes % (auto) 4.3 % (0.0-12.0); Neutrophils # (auto) 13.9 10 ^3/uL (1.6-8.6); Neutrophils % (auto) 84.4 % (37.0-80.0); Nucleated Red Blood Cells % 0.1 %; Platelet Count (auto) 349 10^3/uL (140-450); Red Cell Distribution Width 13.2 % (11.8-14.3); White Blood Cell 16.4 10^3/uL (4.4-10.8)
[2024-10-04 07:11] LABS: Calcium 9.6 mg/dL (8.7-10.4); Potassium 4.8 mmol/L (3.5-5.1); Sodium 142 mmol/L (136-145)
[2024-10-04 07:12] LABS: Anion Gap 10 (5-15); Carbon Dioxide 22 mmol/L (20-31)
[2024-10-04 07:17] LABS: BUN/Creatinine Ratio 13.6 (10.0-20.0); Blood Urea Nitrogen 11 mg/dL (9-23)
[2024-10-04 07:21] LABS: Chloride 110 mmol/L (98-107); Glucose 106 mg/dL (74-106)
[2024-10-04] MEDS: levoFLOXacin 250MG 50 ML IV SCH (10:03)
[2024-10-04] MEDS: ALBUTEROL SULF 2.5 MG/0.5ML(0.5%) NEB SOLN NEB SCH (11:52)
[2024-10-04] MEDS: IPRATROPIUM BROM 0.5 MG/2.5ML INH SOL NEB SCH (11:52)
--- NOTE | 2024-10-04 14:35 | DVHPNRES ---
Progress Note Date Seen: Oct 04, 2024 Resident Creating Document: JUS CALDERÓN RESIDENT Medical Necessity Reason Pt with a Central, PICC or Fol: No Subjective Review of Systems SANTOS SHEPHERD is a 33-year-old female with no significant PMH presented to the ED with the chief complaints of shortness of breaths and cough since 6 days prior to admission. Patient seen and examined at the bedside. Patient is currently on 2 L oxygen NC, but reported improvement in her symptoms since admission. Continue Solu- Medrol and vancomycin as prescribed. Continue current management. Monitor lab. Patient reports: No new complaints, Feels better Objective vital signs Vital Sign Date Time Temp Pulse Resp B/P (MAP) Pulse Ox O2 Delivery O2 Flow Rate FiO2 10/04/24 11:58 100 18 96 10/04/24 11:55 Nasal Cannula* 2 28 10/04/24 09:00 98.0 107/66 (80) 98.0 Total Intake and Output 10/03/24 10/03/24 10/04/24 15:00 23:00 07:00 Intake Total 250 ml 2400 ml 1600 ml Output Total 0 ml Balance 250 ml 2400 ml 1600 ml medications Current Medications Medications Dose Ordered Sig/Angelo Route Start Time Stop Time Status Last Admin Dose Admin Vancomycin HCl 0 ml @ 0 mls/hr UD IV 10/02/24 14:15 Piperacillin Sod/ Tazobactam Sod 100 ml @ 100 mls/hr Q8HR IV 10/02/24 22:00 Hold Methylprednisolone Sodium Succinate 40 mg BID IV 10/02/24 22:00 10/04/24 10:12 40 MG Lorazepam 0.5 mg Q6HP PRN PO 10/02/24 14:15 10/04/24 10:12 0.5 MG Al Hydrox/Mg Hydrox/Simethicone 30 ml Q6HP PRN PO 10/02/24 14:15 Docusate Sodium 100 mg BIDPRN PRN PO 10/02/24 14:15 Temazepam 15 mg QHSP PRN PO 10/02/24 14:15 Acetaminophen/ Hydrocodone Bitart 1 tab Q4HP PRN PO 10/02/24 14:15 10/04/24 10:12 1 TAB Ondansetron HCl 4 mg Q4HP PRN IV 10/02/24 14:15 Morphine Sulfate 2 mg Q4HPRN PRN IV 10/02/24 14:15 10/02/24 20:30 2 MG Acetaminophen 650 mg Q6HP PRN PO 10/03/24 09:30 10/03/24 18:17 650 MG Sodium Chloride 1,000 ml @ 150 mls/hr Q6H40M IV 10/03/24 10:45 10/04/24 02:44 150 MLS/HR Levofloxacin 50 ml @ 50 mls/hr DAILY@1000,1100 IV 10/04/24 10:00 10/04/24 10:03 50 MLS/HR Ergocalciferol 50,000 unit Q7D PO 10/03/24 15:00 10/03/24 16:28 50,000 UNIT Albuterol 2.5 mg Q6HR NEB 10/04/24 12:00 10/04/24 11:52 2.5 MG Ipratropium [place] 0.5 mg Q6HR NEB 10/04/24 12:00 10/04/24 11:52 0.5 MG Vancomycin HCl 250 ml @ 250 mls/hr Q8H IV 10/04/24 20:00 Examination Pt is lying on bed General Appearance: Alert, Oriented X3, Cooperative,no distress HEENT: Atraumatic, Mucous membranes moist/pink Respiratory: Wheezing and rales in bilateral lung Improved since yesterday Cardiovascular: tachycardic , Normal S1, Normal S2, No murmurs Abdominal: Active bowel sounds, Soft, no distention, no tenderness Extremities: No edema, Normal pulses, No tenderness/swelling Skin: No Significant rash, except past surgical scars Neuro: Normal speech, sensorimotor deficits none Psych/Mental Status: Mental status NL, Mood NL Nurse was there as sharperone during examination laboratory and microbiology Laboratory Tests 10/04/24 05:26 Test 10/04/24 05:26 Range/Units Serum Glucose 106 74-106 mg/dL Microbiology Date/Time Source Procedure Growth Status 10/03/24 08:58 Blood Blood Culture - Preliminary NO GROWTH AFTER 24 HOURS OF INCUBATION. Resulted Labs and/or images reviewed: Labs reviewed by me, Image(s) reviewed by me Problem List/Assessment/Plan Problem List/Assessment/Plan # Sepsis likely due to pneumonia # Acute G+/- bacterial PNA vs Aspiration PNA # acute hypoxic respiratory failure likely due to pneumonia # ruled out influenza and COVID - currently on 2 L oxygen NC - Patient receiving breathing treatments along with Solu-Medrol 40 and vancomycinl and levofloxacin. - Consulted pulmonology for further evaluation, advised to continue current management. - ordered CT chest We, which showed moderate site patchy ground-glass opacities in left upper lobe and perihilar right lung - Ordered cultures - monitor lab - CXR showed left basilar atelectasis, otherwise, no radiographic evidence of acute cardiopulmonary disease # Vit D deficiency - Repleting # likely obstructive sleep apnea - need outpatient pulmonology follow up for the evaluation # morbid obesity - breast about healthy lifestyle modifications including diet, exercise No DVT PPX since patient is ambulatory Maalox cardiac diet Goals of care discussed with the patient for more than 27 minutes: Full code status Case management discussed with Dr. Arellano, patient and nurse Plan discussed with: Patient, Other (Family and RN) My Orders My Orders Orders - JUS CALDERÓN Procedure Category Date Status Time Ergocalciferol PHA 10/03/24 In Process (Vitamin D 50,000 15:00 Incentive Spirometry ORDERS 10/04/24 Transmitted 07:13 Albuterol Medneb PHA 10/04/24 In Process (Ventolin Medneb) 12:00 Ipratropium Medneb PHA 10/04/24 In Process (Atrovent Medneb) 12:00 Date of Service: Oct 04, 2024 Billing Provider: LAURO ARELLANO MD Common Visit Codes: [id number] INP/OBS CARE(HIGH) JUS CALDERÓN Oct 04, 2024 14:35 LAURO ARELLANO MD Oct 06, 2024 19:42
[2024-10-04] MEDS: IBUPROFEN 600 MG TAB PO ONE (18:32)
[2024-10-04] MEDS: VANCOMYCIN 1GM/250ML KIT 250 ML IV SCH (20:03)
[2024-10-05] VITALS (12 sets, daily range): BP systolic 117–132; BP diastolic 64–69; PULSE 73–97; RESP 12–20; TEMP 36.7; O2SAT 95–99
[2024-10-05 06:08] LABS: Basophils # (auto) 0 10 ^3/uL (0-0.2); Eosinophils # (auto) 0 10 ^3/uL (0-0.8); Hematocrit 41.9 % (36.0-46.0); Hemoglobin 14.4 g/dL (12.2-16.2); Lymphocytes # (auto) 1.9 10 ^3/uL (0.4-5.4); Lymphocytes % (auto) 16.3 % (10.0-50.0); Mean Corpuscular Hgb Conc. 34.3 g/dL (32.0-36.0); Mean Corpuscular Volume 87.5 fL (80.0-100.0); Monocytes # (auto) 0.3 10 ^3/uL (0-1.3); Monocytes % (auto) 2.9 % (0.0-12.0); Neutrophils # (auto) 9.5 10 ^3/uL (1.6-8.6); Neutrophils % (auto) 80.8 % (37.0-80.0); Nucleated Red Blood Cells % 0.3 %; Platelet Count (auto) 324 10^3/uL (140-450); Red Blood Cells 4.79 10^6/uL (4.0-5.20); Red Cell Distribution Width 13.2 % (11.8-14.3); White Blood Cell 11.8 10^3/uL (4.4-10.8)
[2024-10-05 07:39] LABS: Potassium 4.2 mmol/L (3.5-5.1); Sodium 140 mmol/L (136-145)
[2024-10-05 07:40] LABS: Anion Gap 11 (5-15)
[2024-10-05 07:45] LABS: BUN/Creatinine Ratio 11.6 (10.0-20.0); Blood Urea Nitrogen 10 mg/dL (9-23)
[2024-10-05 07:49] LABS: Carbon Dioxide 19 mmol/L (20-31); Chloride 110 mmol/L (98-107); Glucose 166 mg/dL (74-106)
[2024-10-05 09:17] LABS: Lactic Acid w/Reflex 2.2 mmol/L (0.4-2.0)
[2024-10-05] MEDS ORDERED: PRED20TA2 PO (10:43)
[2024-10-05] MEDS ORDERED: CEPH250C PO (10:43)
[2024-10-05] MEDS ORDERED: AZIT-43 PO (10:43)
--- NOTE | 2024-10-05 14:20 | DVHDSRES ---
Discharge Summary Date of Admission Resident Creating Document: JUS CALDERÓN RESIDENT Oct 02, 2024 at 14:11 Date of Discharge: Oct 05, 2024 Labs/Diagnostic Data: Laboratory Results Test 10/05/24 08:38 10/05/24 05:34 10/04/24 05:26 10/03/24 08:58 Lactic Acid Level 2.2 mmol/L (0.4-2.0) White Blood Count 11.8 10^3/uL (4.4-10.8) Red Blood Count 4.79 10^6/uL (4.0-5.20) Hemoglobin 14.4 g/dL (12.2-16.2) Hematocrit 41.9 % (36.0-46.0) Mean Corpuscular Volume 87.5 fL (80.0-100.0) Mean Corpuscular Hemoglobin 30.0 pg (28.0-32.0) Mean Corpuscular Hemoglobin Concent 34.3 g/dL (32.0-36.0) Red Cell Distribution Width 13.2 % (11.8-14.3) Platelet Count 324 10^3/uL (140-450) Mean Platelet Volume 7.4 fL (6.9-10.8) Neutrophils (%) (Auto) 80.8 % (37.0-80.0) Lymphocytes (%) (Auto) 16.3 % (10.0-50.0) Monocytes (%) (Auto) 2.9 % (0.0-12.0) Eosinophils (%) (Auto) 0.0 % (0.0-7.0) Basophils (%) (Auto) 0.0 % (0.0-2.0) Neutrophils # (Auto) 9.5 10 ^3/uL (1.6-8.6) Lymphocytes # (Auto) 1.9 10 ^3/uL (0.4-5.4) Monocytes # (Auto) 0.3 10 ^3/uL (0-1.3) Eosinophils # (Auto) 0 10 ^3/uL (0-0.8) Basophils # (Auto) 0 10 ^3/uL (0-0.2) Nucleated Red Blood Cells 0.3 % Sodium Level 140 mmol/L (136-145) Potassium Level 4.2 mmol/L (3.5-5.1) Chloride Level 110 mmol/L (98-107) Carbon Dioxide Level 19 mmol/L (20-31) Anion Gap 11 (5-15) Blood Urea Nitrogen 10 mg/dL (9-23) Creatinine 0.86 mg/dL (0.550-1.02) Glomerular Filtration Rate Calc 90 mL/min (>90) BUN/Creatinine Ratio 11.6 (10.0-20.0) Serum Glucose 166 mg/dL (74-106) Calcium Level 9.0 mg/dL (8.7-10.4) Vancomycin Level Trough 8.8 ug/mL (5-10) Hemoglobin A1c 5.6 % A1C (<5.7) Magnesium Level 2.0 mg/dL (1.6-2.6) Total Bilirubin 0.2 mg/dL (0.2-1.0) Aspartate Amino Transferase (AST) 20 U/L (13-40) Alanine Aminotransferase (ALT) 39 U/L (7-40) Alkaline Phosphatase 85 U/L (46-116) Total Protein 7.7 g/dL (5.7-8.2) Albumin 4.8 g/dL (3.2-4.8) Vitamin B12 Level 554 pg/mL (211-911) Vitamin D 25-Hydroxy 13.3 ng/mL (30.0-100) Thyroid Stimulating Hormone (TSH) 0.77 uIU/mL (0.55-4.78) Beta HCG, Quantitative 2.1 mIU/mL (1.5-4.2) Plasma/Serum Blood Alcohol < 3.0 mg/dL (<10) Test 10/03/24 06:37 10/02/24 15:05 10/02/24 12:08 10/02/24 12:02 Estimated GFR () 92 mL/min Estimated GFR (Non- 76 mL/min Phosphorus Level 3.7 mg/dL (2.4-5.1) Blood Gas Specimen Type Arterial Blood Gas Sample Site Right radial Blood Gas Patient Temperature 37.0 Arterial Blood Date Drawn [id number] Arterial Blood pH 7.443 (7.350-7.450) Arterial Blood Partial Pressure CO2 23.2 mmHg (32.0-45.0) Arterial Blood Partial Pressure O2 68.0 mmHg (83.0-108.0) Arterial Blood HCO3 15.5 mmol/L (21.0-28.0) Arterial Blood Oxygen Saturation 93.8 % (94.0-98.0) Arterial Blood Base Excess -5.9 mmol/L (-2.0-3.0) Arterial Blood Oxyhemoglobin 92.3 % (94.0-98.0) Arterial Blood Carboxyhemoglobin 1.1 % (0.5-1.5) Arterial Blood Methemoglobin 0.5 % (0.0-1.5) Bello Test Yes Blood Gas Total Hemoglobin 17.70 g/dL (12.0-16.0) Blood Gas Liter Flow 2.00 Blood Gas Modality Nasal cannula FiO2 % 28.0 Influenza Type A Antigen Negative (Negative) Influenza Type B Antigen Negative (Negative) SARS-CoV-2 Antigen (Rapid) Negative (NEGATIVE) Differential Total Cells Counted 100.0 (100) Neutrophils % (Manual) 91 (37.0-80.0) Band Neutrophils % (Manual) 1 Lymphocytes % (Manual) 5 (10.0-50.0) Monocytes % (Manual) 3 (0-12) Eosinophils % (Manual) 0 (0-7) Basophils % (Manual) 0 (0.0-2.0) Metamyelocytes % (manual) 0 Myelocytes % (Manual) 0 Promyelocytes % (Manual) 0 Blast Cells % (Manual) 0 Reactive Lymphocytes 0 Platelet Estimate Adequate D-Dimer, Quantitative 0.21 mg/L FEU (0.0-0.49) Other Laboratory Tests 10/05/24 05:34 Brief Hx & Hospital Course: Carrington Avila is a 33-year-old female patient who presents to the ED with a chief complaint of progressive dyspnea form functional class I to functional class III associated with dry cough which started 6 days before her admission. Patient reports symptoms initiated fter she aspirated on food (booba sphere from her tea), evaluated in urgent care, where she received steroids, antibiotics (z- pack and Doxycycline) and breathing treatments, did not resolve, worsening with cough, headache, palpitations and shortness of which prompted her to visit ED. On my assessment patient denies recent travel, sick contact, fever, nausea, vomiting, diarrhea, chest pain, and other acute associated symptoms. 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 Active smoker (17 pack-year history of smoking). Denies alcohol and other drug abuse Allergies: Amoxicillin Home medications: None Brief Hospital course: Acute respiratory failure associated with sepsis secondary to aspiration pneumonia in the setting of patient aspirating food product, requiring on admission empiric IV antibiotic (vancomycin and levofloxacin), IV steroids, oxygen therapy and bronchodilators. Completed chest CT which showed moderate patchy ground glass opacities in left upper lobe and perihilar right lung, no obvious foreign bodies in airway. Evaluated by deck worker specialist (Dr. Blake) who indicated medical therapy at this time, no bronchoscopy needed. Patient hemodynamically stable, asymptomatic, with no oxygen requirement and with laboratory parameters improving, in condition to be discharged home. Was granted under optimal medical therapy, gave her advice on healthy lifestyle habits, and follow up as outpatient with PCP and pulmonology. DIAGNOSIS Sepsis likely due to pneumonia Acute G+/- bacterial PNA vs Aspiration PNA Acute hypoxic respiratory failure likely due to pneumonia Ruled out influenza and COVID Vitamin D deficiency Obesity Goals of care discussed with the patient for more than 27 minutes: Full code status Case management discussed with Dr. Holcomb, patient and nurse Physical Examination Patient lying in bed, in no acute distress General: Lucid, afebrile, mucosae are moist Cardiovascular: Normal S1 and S2. No murmurs, gallops or rubs Respiratory: Normal ventilation mechanics. Clear lung sounds on auscultation Abdomen: Soft, nontender, no organomegaly, normal bowel sounds MSK/skin: Mobilizes 4 limbs. Skin is dry and warm Neurological: Oriented in 3 spheres. No motor no sensitive deficits. Pupils are isocoric and reactive Operations or Procedures Chest x-ray IMPRESSION: IMPRESSION: 1. Left basilar atelectasis, otherwise, no radiographic evidence of acute cardiopulmonary disease. Chest CT IMPRESSION: 1. Moderate size patchy ground-glass opacities in the left upper lobe likely representing airspace disease. Clinical correlation is recommended. 2. Similar smaller areas of patchy ground-glass opacity in the perihilar right lung. Condition at Discharge: Good Final Diagnosis/Problems List Sepsis likely due to pneumonia Acute G+/- bacterial PNA vs Aspiration PNA Acute hypoxic respiratory failure likely due to pneumonia Ruled out influenza and COVID Vitamin D deficiency Discharge Disposition: Home SNF Discharge Will this Physician continue t: No Discharge Instruct/Medications Diet: Regular Activity: No Restrictions, As Tolerated Follow Up/Referral: PCP Medications: Per EMR (she will continue with Z-pack, doxycycline and prednisone) Discharge Statement: "Patient was advised to return to the ER or call 911 if any headaches, dizziness, shortness of breath, chest pain, abdominal pain, bleeding, fevers, or worsening of medical condition. Patient was counseled about treatment plan, medications, possible side effects, patientverbalized understanding. All questions were answered to the best of my ability. This discharge took greater then 30 minutes in planning, reviewing documentation, counseling the patient, and discussing with other team members." ASSESSMENT ASSESSMENT Assessment Aspiration pneumonia Date of Service: Oct 05, 2024 Billing Provider: LAURO HOLCOMB MD Common Visit Codes: 96253-ZGL/OBS DISCH DAY >30min GARY MONIQUE RESIDENT Oct 05, 2024 14:20 LAURO HOLCOMB MD Oct 06, 2024 19:43
== END 2024-10-05 13:07 | disposition home or self-care (01) | DRG 871 ==
LOC: ER 11:26 → OVERFLOW 14:11 → EAST 23:09
PROVIDERS: ADMIT Internal Medicine Geriatric Medicine; ATTEND Internal Medicine Geriatric Medicine
DX: A41.50 Gram-negative sepsis, unspecified (principal); J15.69 Pneumonia due to other Gram-negative bacteria; J96.01 Acute respiratory failure with hypoxia; J69.0 Pneumonitis due to inhalation of food and vomit; J15.9 Unspecified bacterial pneumonia; J98.11 Atelectasis; F17.210 Nicotine dependence, cigarettes, uncomplicated; Z20.822 Contact with and (suspected) exposure to COVID-19; E55.9 Vitamin D deficiency, unspecified; E66.01 Morbid (severe) obesity due to excess calories; Z68.35 Body mass index [BMI] 35.0-35.9, adult; Z90.710 Acquired absence of both cervix and uterus; Z82.49 Family history of ischemic heart disease and other diseases of the circulatory system; Z88.0 Allergy status to penicillin; Z83.3 Family history of diabetes mellitus
CPT/HCPCS: 36415; 36600; 71046; 71250; 80048; 80053; 80069; 80202; 80320; 82306; 82565; 82607; 82805; 83036; 83605; 83735; 84443; 84702; 85007; 85025; 85027; 85379; 87040; 87070; 87205; 87426; 87804; 93005; 94640; G0378; J7060